=== PATIENT | male | born 1975 | race Caucasian/White ===

== ENCOUNTER 2020-08-31 15:58 | Emergency (ER) | payer OTHER ==
[~2020-08-31] VITALS: Ht 185.4 cm; Wt 88.5 kg
[2020-08-31 16:19] LABS: URINE BILIRUBIN NEGATIVE (Negative); URINE BLOOD NEGATIVE (Negative); URINE CLARITY CLEAR; URINE COLOR YELLOW; URINE GLUCOSE-RANDOM* NEGATIVE (Negative); URINE KETONES NEGATIVE (Negative); URINE LEUKOCYTES-REFLEX NEGATIVE (Negative); URINE NITRITE-REFLEX NEGATIVE (Negative); URINE PROTEIN (DIPSTICK) NEGATIVE (Negative); URINE SPECIFIC GRAVITY <= 1.005 (1.005-1.035); URINE UROBILINOGEN 0.2 E.U./dl (0.2-1.0)
[2020-08-31 16:46] LABS: HEMATOCRIT 46.7 % (42.0-52.0); HEMOGLOBIN 15.8 gm/dL (14.0-18.0); MCHC 33.9 g/dL (28.0-37.0); MCV 88.6 fL (80.0-100.0); RBC 5.27 mil/uL (4.50-6.00); RDW 13.4 % (10.5-14.5); WBC 16.7 thou/uL (4.0-11.0)
[2020-08-31 16:56] LABS: CREATININE 1.4 mg/dL (0.7-1.3)
[2020-08-31 17:02] LABS: ALBUMIN 4.2 g/dL (3.4-5.0); TOTAL BILIRUBIN 0.6 mg/dL (0.2-1.0); TOTAL PROTEIN 7.8 g/dL (6.4-8.2)
[2020-08-31 18:17] VITALS: BP 117/85
--- NOTE | 2020-09-01 07:13 | EKG ---
[address] [place] [address] ELECTROCARDIOGRAM REPORT Name: GARCIAYAMIL Minh [id number] Admission: 08/31/20 Attend Phys: Discharge: 08/31/20 Date of : 77 Report #: [id number] [facility] ED Test Date: 2020-08-31 Test Time: 16:10:43 Pat Name: YAMIL GARCIA Department: Room: Gender: [place] [employer]: CATHY : 1975 Requested By: Yudith Roberts Order Number: [id number] MD: Antoine Odonnell Measurements Intervals [place] Rate: 71 P: 51 IA: 141 QRS: 55 QRSD: 102 T: 24 QT: 389 QTc: 423 Interpretive Statements Sinus rhythm Ventricular premature complex RSR' in V1 or V2, right VCD No previous ECG available for comparison Electronically Signed On 09-01-2020 7:13:29 [employer] by Antoine Odonnell [email or web address] <ELECTRONICALLY SIGNED> By: Antoine Odonnell MD, [facility] 09/01/20 0713 1610 1610 Antoine Odonnell MD, FACC /EPI
== END 2020-08-31 18:24 | disposition home or self-care (01) ==
LOC: ER 15:58
PROVIDERS: Nurse Practitioner Family
DX: R53.1 Weakness (principal); E86.0 Dehydration; D72.829 Elevated white blood cell count, unspecified